=== PATIENT | male | born 1975 | race Caucasian/White ===

== ENCOUNTER → 2024-08-25 07:35 | Outpatient (REF) | payer BC, SELFPAY ==
[2024-08-25 08:40] LABS: % Basophils 0.9 % (0-2); % Eosinophils 3.9 % (0-6); % Immature Granulocytes 0.2 % (0-0.5); % Lymphocytes 36.5 % (20.5-51.1); % Monocytes 10.5 % (1.7-9.3); Absolute Eosinophils 0.2 10^3/uL (0-0.7); Absolute Lymphocytes 1.7 10^3/uL (1.2-3.4); Absolute Monocytes 0.5 10^3/uL (0.1-0.6); Absolute Neutrophils 2.2 10^3/uL (1.4-6.5); Hematocrit 38.8 % (39.0-52.0); Hemoglobin 13.2 g/dL (13.0-18.0); Mean Corpuscular Hgb 29.2 pg (27.0-31.0); Mean Corpuscular Volume 85.8 fL (80.0-94.0); Mean Platelet Volume 11.7 fL (7.4-10.4); Nucleated Red Blood Cells % 0 % (-); Platelet Count 169 10^3/uL (130-400); Red Blood Cell Count 4.52 10^6/uL (4.70-6.10); Red Cell Dist. Width 13.1 % (11.5-14.5); White Blood Cell Count 4.6 10^3/uL (4.8-10.8)
[2024-08-25 09:14] LABS: ALT (SGPT) 39 U/L (0-50); AST (SGOT) 31 U/L (17-59); Albumin 4.7 g/dl (3.5-5.0); Alkaline Phosphatase 62 U/L (38-126); Blood Urea Nitrogen 23 mg/dl (9-20); Calcium 9.7 mg/dl (8.4-10.2); Carbon Dioxide 28 mmol/L (22-30); Chloride 102 mmol/L (98-107); Glucose 94 mg/dl (70-99); HDL Cholesterol 45 mg/dl; Iron 147 ug/dl (49-181); LDL Cholesterol, Calculated 130 mg/dl; Potassium 4.1 mmol/L (3.5-5.1); Sodium 142 mmol/L (135-145); Total Bilirubin 0.3 mg/dl (0.2-1.3); Total Cholesterol 213 mg/dl (50-199); Triglyceride 191 mg/dl (10-149); Very Low Density Lipoprotein 38 mg/dl (0-30); eGFR > 60.00
[2024-08-25 09:25] LABS: Percent Saturation 55 % (20-50); Total Iron Binding Capacity 265 ug/dl (261-462)
[2024-08-25 09:41] LABS: TSH Reflex To Free T4 1.09 uIU/ml (0.47-4.68)
[2024-08-25 11:39] LABS: Glycohemoglobin (HgbA1c) 5.6 % (4.0-5.6)
== END ==
LOC: REG 07:35
PROVIDERS: ATTENDING PHYSICIAN Emergency Medicine; REFERRING PHYSICIAN Internal Medicine Endocrinology, Diabetes & Metabolism
DX: R59.0 Localized enlarged lymph nodes (principal); Z85.850 Personal history of malignant neoplasm of thyroid; D64.9 Anemia, unspecified; E78.00 Pure hypercholesterolemia, unspecified; R73.03 Prediabetes
CPT/HCPCS: 36415; 80053; 80061; 82728; 83036; 83540; 83550; 84443; 85025

== ENCOUNTER → 2025-01-14 06:29 | Outpatient (REF) | payer BC, SELFPAY ==
[2025-01-14 07:07] LABS: Osmolality Urine 845 mOsm/kg (300-900)
[2025-01-14 07:09] LABS: Blood Urea Nitrogen 22 mg/dl (9-20); Calcium 9.3 mg/dl (8.4-10.2); Carbon Dioxide 29 mmol/L (22-30); Chloride 102 mmol/L (98-107); Glucose 112 mg/dl (70-99); Potassium 3.9 mmol/L (3.5-5.1); Sodium 139 mmol/L (135-145); eGFR > 60.00
== END ==
LOC: REG 06:29
PROVIDERS: ATTENDING PHYSICIAN Internal Medicine Endocrinology, Diabetes & Metabolism; FAMILY PHYSICIAN Emergency Medicine
DX: D35.2 Benign neoplasm of pituitary gland (principal)
CPT/HCPCS: 36415; 80048; 83935

== ENCOUNTER → 2025-02-05 08:31 | Outpatient (REF) | payer BC, SELFPAY ==
[2025-02-05 10:49] LABS: FSH 2.5 mIU/ml (1.55-9.74); Luteinizing Hormone 2.19 mIU/ml (1.24-7.80)
[2025-02-05 11:04] LABS: Cortisol, Random 10.4 ug/dl
[2025-02-06 09:16] LABS: Adrenocorticotropic Hormone 29.8 pg/mL (7.2-63.3)
[2025-02-06 21:04] LABS: % Free Testosterone 2.3 % (1.6-2.9); Free Testosterone 77 pg/mL (47-244); Sex Hormone Binding Globulin 19 nmol/L (17-56); Total Testosterone 332 ng/dL (300-890)
== END ==
LOC: REG 08:31
PROVIDERS: ATTENDING PHYSICIAN Nurse Practitioner Family; FAMILY PHYSICIAN Emergency Medicine; OTHER PHYSICIAN Internal Medicine Endocrinology, Diabetes & Metabolism
DX: Z91.89 Other specified personal risk factors, not elsewhere classified (principal); D35.2 Benign neoplasm of pituitary gland
CPT/HCPCS: 36415; 82024; 82533; 83001; 83002; 84270; 84402; 84403